=== PATIENT | male | born 1970 | race Caucasian/White ===

== ENCOUNTER 2017-03-27 21:12 | Emergency (ER) | payer BC ==
[2017-03-27 22:13] VITALS: BP 119/78
--- NOTE | 2017-03-27 22:53 | EDM.PDOC ---
ED HPI GENERAL MEDICAL PROBLEM - General Chief Complaint: Abdominal Pain Stated Complaint: HURT L LEG Time Seen by Provider: 03/27/17 22:28 Source of Information: Reports: Patient History Limitations: Reports: No Limitations - History of Present Illness INITIAL COMMENTS - FREE TEXT/NARRATIVE: This patient says for the last couple of weeks he's been getting some pain in the right groin over the inguinal canal. He says it's especially painful when he 's been standing for a long time. He thinks maybe he has a hernia. No history of abdominal pain or vomiting Left Groin Pain Score (Numeric/FACES): 7 - Related Data Allergies Allergy/AdvReac Type Severity Reaction Status Date / Time No Known Allergies Allergy Verified 12/13/13 10:49 Home Meds: Home Meds Levothyroxine Sodium [Synthroid] 125 mcg PO DAILY 12/13/13 [History] Past Medical History Endocrine/Metabolic History: Reports: Hypothyroidism - Past Surgical History GI Surgical History: Reports: Hernia, Inguinal Social & Family History - Tobacco Use Smoking Status *Q: Never Smoker Second Hand Smoke Exposure: No - Caffeine Use Caffeine Use: Reports: None - Alcohol Use Days Per Week of Alcohol Use: 0 - Recreational Drug Use Recreational Drug Use: No ED ROS GENERAL - Review of Systems Review Of Systems: ROS reveals no pertinent complaints other than HPI. ED EXAM, GI/ABD - Physical Exam Exam: See Below Exam Limited By: No Limitations General Appearance: Alert, WD/WN, No Apparent Distress (Male) Exam: Circumcised, Hernia (There is a left inguinal hernia which is palpable only during Valsalva. No evidence of incarceration or strangulation.) Extremities: Normal Inspection Course - Vital Signs Last Recorded V/S: Last Vital Signs Temp 36.7 C 03/27/17 22:14 Pulse 46 L 03/27/17 22:14 Resp 14 03/27/17 22:14 BP 119/78 03/27/17 22:14 Pulse Ox 98 03/27/17 22:14 Departure - Departure Time of Disposition: 22:49 Disposition: Home, Self-Care 01 Condition: Fair Clinical Impression: Left inguinal hernia - Discharge Information Instructions: Hernia, Adult, [id number] Referrals: Ishmael Xavier MD [Primary Care Provider] - Forms: ED Department Discharge Additional Instructions: You have an inguinal hernia on the left side. When you bear down hard the abdominal contents will balloon out through the hernia defect a little bit. When you bear down it's a little swelling about the size of your thumb that comes through the hole. As soon as you let off the hernia will go back in. You may have some pain when you stand for a long time. You may work but should avoid bearing down where you tighten up your abdominal muscles. If the hernia does balloon out then you should just push it back in. Talk to Dr. Huang as soon as he gets back. You could also call one of the other surgeons if you wish. The only danger with the hernia is that if it gets stuck and causes some blockage in your intestines. If that happened it would cause you to start vomiting. If this ever happens again you should come back to the emergency department immediately.
== END 2017-03-27 23:00 | disposition home or self-care (01) ==
LOC: JP.ED 21:12
DX: K40.90 Unilateral inguinal hernia, without obstruction or gangrene, not specified as recurrent (principal); E03.9 Hypothyroidism, unspecified; Z79.899 Other long term (current) drug therapy
CPT/HCPCS: 99283

== ENCOUNTER 2017-03-30 12:19 | Emergency (ER) | payer BC ==
[2017-03-30 12:55] VITALS: BP 112/73
--- NOTE | 2017-03-30 13:36 | EDM.PDOC ---
ED HPI GENERAL MEDICAL PROBLEM - General Chief Complaint: General Stated Complaint: HERNIA AREA IS SORE Time Seen by Provider: 03/30/17 13:01 Source of Information: Reports: Patient, Old Records, RN Notes Reviewed History Limitations: Reports: No Limitations - History of Present Illness INITIAL COMMENTS - FREE TEXT/NARRATIVE: 46-year-old gentleman presents emergency department today with ongoing left inguinal groin pain he has a known left inguinal hernia he is set up for surgery next week on April 08, he was mainly concerned if there is any other options he can pursue he is currently using a washcloth and deny wrap for some relief. Denies any nausea vomiting abdominal pain or change in bowel habits - Related Data Allergies Allergy/AdvReac Type Severity Reaction Status Date / Time No Known Allergies Allergy Verified 03/30/17 13:03 Home Meds: Home Meds Levothyroxine Sodium [Synthroid] 125 mcg PO DAILY 12/13/13 [History] Past Medical History HEENT History: Reports: Impaired Vision Musculoskeletal History: Reports: Arthritis Endocrine/Metabolic History: Reports: Hypothyroidism - Past Surgical History GI Surgical History: Reports: Hernia, Inguinal Social & Family History - Tobacco Use Smoking Status *Q: Never Smoker Second Hand Smoke Exposure: No - Caffeine Use Caffeine Use: Reports: None - Alcohol Use Days Per Week of Alcohol Use: 0 - Recreational Drug Use Recreational Drug Use: No ED ROS GENERAL - Review of Systems Review Of Systems: See Below Constitutional: Denies: Fever, Chills HEENT: Reports: No Symptoms Respiratory: Reports: No Symptoms Cardiovascular: Reports: No Symptoms GI/Abdominal: Reports: Abdominal Pain (Abdominal discomfort), Flatus. Denies: Nausea, Vomiting : Reports: No Symptoms ED EXAM, GENERAL - Physical Exam Exam: See Below Exam Limited By: No Limitations General Appearance: Alert, WD/WN, No Apparent Distress Respiratory/Chest: No Respiratory Distress GI/Abdominal: Normal Bowel Sounds, Soft, Non-Tender, No Organomegaly, No Distention, No Abnormal Bruit, No Mass Course - Vital Signs Last Recorded V/S: Last Vital Signs Temp 96.6 F 03/30/17 12:56 Pulse 71 03/30/17 12:56 Resp 16 03/30/17 12:56 BP 112/73 03/30/17 12:56 Pulse Ox 98 03/30/17 12:56 Departure - Departure Time of Disposition: 13:35 Disposition: Home, Self-Care 01 Condition: Good Clinical Impression: Left inguinal hernia - Discharge Information Forms: ED Department Discharge Additional Instructions: Please keep your follow-up appointment with general surgery next week, call or return to the emergency department with worsening of symptoms - Assessment/Plan Plan: Assessment Acuity = acute Site and laterality = left inguinal hernia Etiology = unclear etiology Manifestations = none Location of injury = home Lab values = none Plan Recommend discontinue the washcloth and deny wrap, recommend taking these E for the next week or so keep appointment with general surgery, call or return to the ED with worsening of symptoms Patient was in agreement with the plan all questions were answered, they were instructed to return to the emergency department or call for worsening symptoms. This note was dictated using modulR voice recognition software please call with any questions.
== END 2017-03-30 13:54 | disposition home or self-care (01) ==
LOC: JP.ED 12:19
DX: K40.90 Unilateral inguinal hernia, without obstruction or gangrene, not specified as recurrent (principal); E03.9 Hypothyroidism, unspecified; M19.90 Unspecified osteoarthritis, unspecified site; Z79.899 Other long term (current) drug therapy
CPT/HCPCS: 99283

== ENCOUNTER 2017-04-14 06:17 | Day surgery (SDC) | payer BC ==
[2017-04-14] MEDS ORDERED: Bupivacaine 0.5% 50 ML MDV ONE (06:57)
[2017-04-14] MEDS ORDERED: Lidocaine 1% with EPINEPHrine 1:100,000 50 ML MDV ONE (06:57)
[2017-04-14] MEDS ORDERED: ceFAZolin 2 GM in Sodium Chloride 0.9% 50 ML IV ONE (07:00)
[2017-04-14] MEDS ORDERED: Dextrose 5%-Lactated Ringers 1,000 ML IV SCH (07:00)
[2017-04-14] MEDS ORDERED: fentaNYL 250 MCG/5 ML SDV ONE (07:02)
[2017-04-14] MEDS ORDERED: Midazolam 1 MG/ML 2 ML SDV ONE (07:02)
[2017-04-14] MEDS ORDERED: Propofol 200 MG/20 ML SDV ONE (07:02)
[2017-04-14] MEDS ORDERED: Ketorolac 60 MG/2 ML SDV ONE (09:05)
[2017-04-14] MEDS ORDERED: Acetaminophen/HYDROcodone 325-5 MG Tab PO ONE (10:12)
[2017-04-14 11:36] VITALS: BP 96/53
--- NOTE | 2017-04-20 12:19 | OR ---
DATE OF PROCEDURE: 04/14/2017 PREOPERATIVE DIAGNOSIS: Left inguinal hernia. POSTOPERATIVE DIAGNOSES: 1. Left inguinal hernia associated with intra-abdominal mass attached to the hernia sac. 2. Ilioinguinal nerve at risk for entrapment by scar and subsequent postoperative neuropathic pain. OPERATIVE PROCEDURES: 1. Left inguinal exploration with:. a. Repair of left inguinal hernia with mesh (82117). b. Resection of intraperitoneal mass associated with hernia sac (08469). c. Division of left ilioinguinal nerve (16567). ANESTHESIA: Local plus IV sedation. INDICATION FOR PROCEDURE: This is a 46-year-old male presenting with increasingly symptomatic left inguinal hernia. Plan is to proceed with repair of this using a mesh plug technique. Potential risks including bleeding, infection, injury to underlying viscera, possible chronic pain following the repair, and possible recurrence, as well as infection of the mesh were all gone over and the patient wishes to proceed. Additionally, the mesh technique sometimes will result in traumatic and scar entrapment of the ilioinguinal nerve causing chronic pain postoperatively and if this appears to be in the location where the mesh would be present, this would be divided creating an area of anesthesia in the inguinal area, but avoiding the problems with postoperative neuropathic pain. The patient has Down syndrome but is extremely high functioning and certainly has his IQ sufficient to participate in an informed consent. DETAILS OF PROCEDURE: The patient was taken to the operating room and placed in a supine position. After IV sedation was administered, the abdomen and groin areas were prepped and draped. The left inguinal area was anesthetized with 1% lidocaine mixed with Marcaine and a standard left inguinal incision was made and carried down through the skin and subcutaneous tissue and through the external oblique aponeurosis. Subaponeurotic flaps were raised superiorly and inferiorly. The cord structures were then mobilized upward. The patient was noted to have a combined indirect and direct hernia. The largest portion of the hernia was a direct hernia, which appeared to have some urinary bladder and the bladder fat coming up into the incision. The patient also has a small indirect hernia. Cremasteric fibers were divided, and the hernia sac was dissected free from the soft tissues. Within the hernia sac, there was noted to be roughly 1.5 to 2 cm mass of soft tissue. This was then excised from the hernia sac and the hernia sac then re-closed with a [id number] stitch of 3-0 Vicryl stitch. At this point, the transversalis fascia was divided over the direct portion of the hernia sac into this defect. After dissection underneath the conjoint tendon, a blunt finger dissection was performed and an extra large mesh plug was placed. This was affixed to the Rocael's ligament with titanium tacking screws to the underside of the conjoint tendon medially and superiorly with horizontal mattress sutures of 0 Vicryl stitch. The indirect hernia was then sealed up with a medium mesh plug placed into that defect. This was somewhat inferiorly to the shelving portion of the inguinal ligament with horizontal mattress sutures, then laterally and superiorly to the conjoint tendon with the same horizontal mattress sutures. The 2 segments of mesh were then united with horizontal mattress suture, placed through conjoint joint and tendon with a suture including both portions of the mesh as it lay [id number]. At this point, the conjoint tendon was tacked down to the shelving portion of the inguinal ligament, medially and laterally to the point where the internal ring was now appropriate size this with an 0 Vicryl stitch. The flat mesh system was then cut to the appropriate size and dimension. The ilioinguinal nerve was noted to run directly underneath where this portion of the mesh would be placed. This was therefore divided, and the portion was excised laterally to the lateral aspect of the incision. The flat portion of the mesh system was then placed and sutured lateral to the cord structures with 0 Vicryl stitch and affixed to the pubic tubercle with titanium tacking screw. The external oblique aponeurosis was then approximated with cord structures with a 4-0 Vicryl stitch as was the Sukhdev's fascia, and the skin then closed with a 4-0 Vicryl subcuticular stitch. Steri-Strips were applied. The patient was taken to the recovery room in satisfactory condition. Randall Huang MD /[id number]
== END 2017-04-14 11:25 | disposition home or self-care (01) ==
LOC: JP.SDS 06:17
PROVIDERS: ATTEND Surgery
PROC: 0YU60KZ Supplement Left Inguinal Region with Nonautologous Tissue Substitute, Open Approach (ICD-10-PCS; principal; 2017-04-14)
PROC: 0DBW0ZZ Excision of Peritoneum, Open Approach (ICD-10-PCS; 2017-04-14)
PROC: 018B0ZZ Division of Lumbar Nerve, Open Approach (ICD-10-PCS; 2017-04-14)
DX: K40.90 Unilateral inguinal hernia, without obstruction or gangrene, not specified as recurrent (principal); G89.18 Other acute postprocedural pain; R19.00 Intra-abdominal and pelvic swelling, mass and lump, unspecified site
CPT/HCPCS: 49203; 49505; 64772; A9270; C1781; J0690; J1885; J2250; J2704; J3010; J7042; J7050; 88302; 88305

== ENCOUNTER 2022-05-30 14:13 | Emergency (ER) | payer BC ==
[2022-05-30 14:39] VITALS: BP 111/78; PULSE 98
== END 2022-05-30 16:47 | disposition home or self-care (01) ==
LOC: JP.ED 14:13
DX: S86.812A Strain of other muscle(s) and tendon(s) at lower leg level, left leg, initial encounter (principal); E78.00 Pure hypercholesterolemia, unspecified; E03.9 Hypothyroidism, unspecified; Z91.048 Other nonmedicinal substance allergy status; Z79.899 Other long term (current) drug therapy; W01.0XXA Fall on same level from slipping, tripping and stumbling without subsequent striking against object, initial encounter
CPT/HCPCS: 73562-26-LT; 73562-LT; 99283

== ENCOUNTER 2022-06-15 11:30 | Emergency (ER) | payer BC ==
[2022-06-15 11:52] VITALS: BP 111/63; PULSE 56
== END 2022-06-15 13:36 | disposition home or self-care (01) ==
LOC: JP.ED 11:30
DX: R42 Dizziness and giddiness (principal); T39.395A Adverse effect of other nonsteroidal anti-inflammatory drugs [NSAID], initial encounter; Z88.8 Allergy status to other drugs, medicaments and biological substances; Z79.899 Other long term (current) drug therapy
CPT/HCPCS: 99284

== ENCOUNTER 2022-07-21 10:02 | Emergency (ER) | payer BC ==
[2022-07-21 10:17] VITALS: PULSE 65
[2022-07-21 11:55] LABS: TROPONIN I HIGH SENSITIVITY 7.7 pg/mL (<=60.3)
[2022-07-21 14:39] VITALS: BP 100/64
== END 2022-07-21 14:48 | disposition home or self-care (01) ==
LOC: JP.ED 10:02
DX: J47.9 Bronchiectasis, uncomplicated (principal); E03.9 Hypothyroidism, unspecified; Z91.018 Allergy to other foods; Z88.6 Allergy status to analgesic agent; Z79.899 Other long term (current) drug therapy
CPT/HCPCS: 36415; 71046; 71046-26; 71250; 71250-26; 80048; 84484; 85025; 99285

== ENCOUNTER 2023-07-18 17:21 | Emergency (ER) | payer BC ==
[2023-07-18 18:04] VITALS: BP 107/70; PULSE 86
== END 2023-07-18 18:30 | disposition home or self-care (01) ==
LOC: JP.ED 17:21
DX: Z53.21 Procedure and treatment not carried out due to patient leaving prior to being seen by health care provider (principal)